=== PATIENT | female | born 1975 | race Caucasian/White ===

== ENCOUNTER 2020-10-24 19:18 | Emergency (ER) | payer MEDICAID ==
[~2020-10-24] VITALS: Ht 157.5 cm; Wt 69.0 kg
[2020-10-24 20:29] LABS: BASOPHILS % 1.1 % (0.0-2.0); EOSINOPHILS % 0.1 % (0.0-5.0); HEMATOCRIT. 36.7 % (36.0-48.0); HEMOGLOBIN. 12.5 g/dL (12.0-16.0); LYMPHOCYTES % 20.3 % (20.0-50.0); MEAN CORPUSCULAR HEMOGLOBIN 29.9 pg (28.0-32.0); MEAN CORPUSCULAR VOLUME 88.1 fL (81.0-99.0); MEAN PLATELET VOLUME 8.3 fl (7.4-10.4); MONOCYTES % 7.9 % (2.0-8.0); NEUTROPHILS % 70.6 % (40.0-76.0); PLATELET 396 x1000/uL (130-400); RED BLOOD CELL COUNT 4.16 mill/uL (4.2-5.4); RED CELL DISTRIBUTION WIDTH 14.1 % (11.6-14.6)
[2020-10-24 20:51] LABS: CHLORIDE 106 mEq/L (98-107)
[2020-10-24 21:04] LABS: HCG SCREEN NEGATIVE
[2020-10-24] MEDS ORDERED: AMLODIPINE 5MG TABLET PO ONE (21:15)
[2020-10-25 00:30] VITALS: BP 131/74
== END 2020-10-25 00:30 | disposition home or self-care (01) ==
LOC: ER 19:18
DX: R00.2 Palpitations (principal); R03.0 Elevated blood-pressure reading, without diagnosis of hypertension; R74.01 Elevation of levels of liver transaminase levels
CPT/HCPCS: 36415; 71045; 80053; 83880; 84484; 84703; 85025; 85379; 93005; 99285

== ENCOUNTER 2020-11-01 21:16 | Emergency (ER) | payer MEDICAID ==
[~2020-11-01] VITALS: Ht 157.5 cm; Wt 71.0 kg
[2020-11-01 21:25] VITALS: BP 150/75
== END 2020-11-01 22:37 | disposition home or self-care (01) ==
LOC: ER 21:16
DX: I10 Essential (primary) hypertension (principal); R00.2 Palpitations; F41.9 Anxiety disorder, unspecified
CPT/HCPCS: 93005; 99281

== ENCOUNTER 2020-11-12 15:16 | Emergency (ER) | payer MEDICAID ==
[~2020-11-12] VITALS: Ht 165.1 cm; Wt 75.0 kg
[2020-11-12 15:22] VITALS: BP 139/84
[2020-11-12 16:24] LABS: BASOPHILS % 0.4 % (0.0-2.0); EOSINOPHILS % 0.2 % (0.0-5.0); HEMATOCRIT. 37.9 % (36.0-48.0); HEMOGLOBIN. 12.8 g/dL (12.0-16.0); LYMPHOCYTES % 21.9 % (20.0-50.0); MEAN CORPUSCULAR VOLUME 88.8 fL (81.0-99.0); MEAN PLATELET VOLUME 8.6 fl (7.4-10.4); MONOCYTES % 8.4 % (2.0-8.0); NEUTROPHILS % 69.1 % (40.0-76.0); PLATELET 312 x1000/uL (130-400); RED BLOOD CELL COUNT 4.27 mill/uL (4.2-5.4)
[2020-11-12 16:36] LABS: CHLORIDE 107 mEq/L (98-107)
[2020-11-12 16:41] LABS: HCG SCREEN NEGATIVE
== END 2020-11-12 18:21 | disposition home or self-care (01) ==
LOC: ER 15:43
DX: F43.9 Reaction to severe stress, unspecified (principal); I10 Essential (primary) hypertension
CPT/HCPCS: 36415; 71045; 80053; 83880; 84484; 84703; 85025; 93005; 99285

== ENCOUNTER 2022-10-19 00:47 | Emergency (ER) | payer MEDICAID ==
[~2022-10-19] VITALS: Ht 152.4 cm; Wt 70.0 kg
[2022-10-19] MEDS ORDERED: ACET-2708 MT (03:21)
[2022-10-19] MEDS ORDERED: IBUPROFEN 400MG TABLET PO ONE (03:30)
[2022-10-19 03:43] VITALS: BP 159/105
== END 2022-10-19 03:54 | disposition home or self-care (01) ==
LOC: ER 00:47
DX: N64.4 Mastodynia (principal); I10 Essential (primary) hypertension
CPT/HCPCS: 99282

== ENCOUNTER 2024-04-17 19:58 | Emergency (ER) | payer MEDICAID, OTHER ==
[~2024-04-17 19:58] MED LIST: ACET-2708 MT
== END 2024-04-17 22:39 | disposition left against medical advice (07) ==
LOC: ER 19:58
DX: I10 Essential (primary) hypertension (principal); Z53.21 Procedure and treatment not carried out due to patient leaving prior to being seen by health care provider

== ENCOUNTER 2024-05-31 02:55 | Emergency (ER) | payer OTHER ==
[~2024-05-31] VITALS: Ht 160 cm; Wt 77.0 kg
[2024-05-31 03:01] VITALS: TEMP 97.9; O2SAT 100
[2024-05-31] MEDS ORDERED: OMEP20CA14 PO (06:13)
[2024-05-31] MEDS: FAMOTIDINE 20MG TABLET PO ONE (06:53)
[2024-05-31] MEDS: DICYCLOMINE 10 MG/5 ML ORAL SYR PO STA (06:53)
[2024-05-31] MEDS: MAGNESIUM/ALUMINUM HYDROXIDE/SIMETHICONE 30ML UDC PO STA (06:53)
[2024-05-31 06:55] VITALS: BP 136/71; PULSE 67; RESP 17; O2SAT 100
== END 2024-05-31 06:23 | disposition home or self-care (01) ==
LOC: ER 03:32
DX: K21.9 Gastro-esophageal reflux disease without esophagitis (principal); I10 Essential (primary) hypertension
CPT/HCPCS: 99284

== ENCOUNTER 2024-07-08 10:11 | Emergency (ER) | payer OTHER ==
[~2024-07-08] VITALS: Ht 165.1 cm; Wt 70.0 kg
[~2024-07-08 10:11] MED LIST changes: +OMEP20CA14 PO
[2024-07-08 10:12] VITALS: O2SAT 99
[2024-07-08] MEDS: ACETAMINOPHEN 325MG TABLET PO STA (11:45)
[2024-07-08] MEDS ORDERED: IBUP-2029 MT (11:49)
[2024-07-08] MEDS ORDERED: CYCL10TA21 MT (11:49)
[2024-07-08 12:17] VITALS: BP 148/87; PULSE 87; RESP 18; TEMP 36.94740; O2SAT 99
== END 2024-07-08 12:18 | disposition home or self-care (01) ==
LOC: ER 10:22
DX: S70.01XA Contusion of right hip, initial encounter (principal); I10 Essential (primary) hypertension; Z98.890 Other specified postprocedural states; Z79.899 Other long term (current) drug therapy; V89.2XXA Person injured in unspecified motor-vehicle accident, traffic, initial encounter; Y93.89 Activity, other specified; Y92.410 Unspecified street and highway as the place of occurrence of the external cause; Y99.8 Other external cause status
CPT/HCPCS: 73502; 81025; 99283